=== PATIENT | female | born 1970 | race Caucasian/White ===

== ENCOUNTER → 2020-05-24 | Outpatient (CLI) | payer OTHER | LOC: CAT 09:13 | PROVIDERS: ATTEND Family Medicine | DX: Z13.6 Encounter for screening for cardiovascular disorders (principal); I25.10 Atherosclerotic heart disease of native coronary artery without angina pectoris; E78.00 Pure hypercholesterolemia, unspecified ==

== ENCOUNTER → 2020-11-01 | Outpatient (CLI) | payer BC | LOC: SJCVCIMAG 07:51 | PROVIDERS: ATTEND Family Medicine | DX: I08.1 Rheumatic disorders of both mitral and tricuspid valves (principal); R00.2 Palpitations; R53.83 Other fatigue ==

== ENCOUNTER → 2021-02-06 | Outpatient (CLI) | payer BC | LOC: SJCVCIMAG 08:28 | PROVIDERS: ATTEND Internal Medicine Cardiovascular Disease | DX: I10 Essential (primary) hypertension (principal); R00.2 Palpitations ==

== ENCOUNTER → 2021-03-27 | Outpatient (CLI) | payer BC | LOC: MRI 03-21 09:30 | PROVIDERS: ATTEND Family Medicine | DX: Z86.018 Personal history of other benign neoplasm (principal) ==